=== PATIENT | male | born 1970 | race Caucasian/White ===

== ENCOUNTER 2023-10-28 08:37 | Outpatient (RCR) | payer OTHER, SELFPAY | END 2023-10-28 23:59 | disposition home or self-care (01) | LOC: RPT 08:37 | PROVIDERS: ATTENDING PHYSICIAN Nurse Practitioner Family; FAMILY PHYSICIAN Internal Medicine | DX: M79.601 Pain in right arm (principal); Z73.6 Limitation of activities due to disability | CPT/HCPCS: 97162 ==

== ENCOUNTER 2023-11-28 06:47 | Day surgery (SDC) | payer OTHER, SELFPAY ==
[2023-11-28] VITALS (15 sets, daily range): BP systolic 97–143; BP diastolic 79–90; BMI 26.3
[2023-11-28] MEDS: NORMOSOL-R 1000 IV (10:53)
[2023-11-28] MEDS: MORPHINE SULFATE 4 MG IV (15:07)
[2023-11-28] MEDS: MORPHINE SULFATE 2 MG IV ×3 (15:19→16:28)
[2023-11-28] MEDS: TORADOL 15 MG IV (15:55)
[2023-11-28] MEDS: ZOFRAN 4 MG IV (18:09)
== END 2023-11-28 19:15 | disposition home or self-care (01) ==
LOC: SDS 06:47
PROVIDERS: ATTENDING PHYSICIAN Orthopaedic Surgery Hand Surgery
DX: S46.211A Strain of muscle, fascia and tendon of other parts of biceps, right arm, initial encounter (principal); X58.XXXA Exposure to other specified factors, initial encounter
CPT/HCPCS: 24342; C1713; C1776

== ENCOUNTER 2024-01-18 11:09 | Outpatient (RCR) | payer OTHER, SELFPAY | END 2024-01-18 23:59 | disposition home or self-care (01) | LOC: RPT 11:09 | PROVIDERS: ATTENDING PHYSICIAN Orthopaedic Surgery Orthopaedic Trauma; FAMILY PHYSICIAN Internal Medicine | DX: S46.211D Strain of muscle, fascia and tendon of other parts of biceps, right arm, subsequent encounter (principal); M25.521 Pain in right elbow; Z73.6 Limitation of activities due to disability; R29.3 Abnormal posture; M62.81 Muscle weakness (generalized) | CPT/HCPCS: 97110; 97140; 97162; 97530 ==

== ENCOUNTER 2024-02-21 16:19 | Outpatient (RCR) | payer OTHER, SELFPAY | END 2024-02-21 23:59 | disposition home or self-care (01) | LOC: RPT 16:19 | PROVIDERS: ATTENDING PHYSICIAN Orthopaedic Surgery Orthopaedic Trauma; FAMILY PHYSICIAN Internal Medicine | DX: Z47.89 Encounter for other orthopedic aftercare (principal); S46.211D Strain of muscle, fascia and tendon of other parts of biceps, right arm, subsequent encounter; M25.521 Pain in right elbow; Z73.6 Limitation of activities due to disability; R29.3 Abnormal posture; M62.81 Muscle weakness (generalized); R20.0 Anesthesia of skin; R20.2 Paresthesia of skin | CPT/HCPCS: 97110; 97140 ==

== ENCOUNTER 2024-03-20 16:30 | Outpatient (RCR) | payer OTHER, SELFPAY | END 2024-03-20 23:59 | disposition home or self-care (01) | LOC: RPT 16:30 | PROVIDERS: ATTENDING PHYSICIAN Orthopaedic Surgery Orthopaedic Trauma; FAMILY PHYSICIAN Internal Medicine | DX: S46.211D Strain of muscle, fascia and tendon of other parts of biceps, right arm, subsequent encounter (principal); M25.521 Pain in right elbow; Z73.6 Limitation of activities due to disability | CPT/HCPCS: 97110; 97530 ==